=== PATIENT | male | born 1940 | race Caucasian/White ===

== ENCOUNTER → 2016-10-04 | Outpatient (CLI) | payer MEDICARE ==
[~2016-10-04] MED LIST: ATEN50TA41 PO; LOSA25TA5 PO; METF500T4 PO; PIOG15TA4 PO; PRAV40TA2 PO
== END | disposition home or self-care (01) ==
LOC: CFH 11:29
PROVIDERS: ATTEND Internal Medicine Pulmonary Disease
DX: J44.9 Chronic obstructive pulmonary disease, unspecified (principal)
CPT/HCPCS: 71020

== ENCOUNTER 2016-10-08 07:19 | Day surgery (SDC) | payer MEDICARE ==
[2016-10-07 10:29] LABS: ASPARTATE AMINO TRANSFERASE 18 U/L (15-37); BLOOD UREA NITROGEN 14 mg/dL (7-18)
[~2016-10-08] VITALS: Ht 172.7 cm; Wt 124.0 kg
[2016-10-08 07:59] VITALS: BP 126/72
[2016-10-08] MEDS ORDERED: LACTATED RINGERS 1,000 ML IV SCH (08:23)
[2016-10-08] MEDS ORDERED: PROPOFOL 10 MG/ML, 20ML ONE (09:41)
[2016-10-08] MEDS ORDERED: HYDROmorphone 1 MG/ML, 1ML IV PRN (10:00)
[2016-10-08] MEDS ORDERED: ONDANSETRON 2MG/ML, 2ML IVPush PRN (10:00)
[2016-10-08] MEDS ORDERED: hydrALAzine 20 MG/ML, 1ML IV PRN (10:00)
[2016-10-08] MEDS ORDERED: FENTANYL PF 100 MCG/2ML IV PRN (10:00)
[2016-10-08] MEDS ORDERED: MIDAZOLAM 1 MG/ML, 2ML IV PRN (10:00)
[2016-10-08] MEDS ORDERED: OXYcodone 5 MG/5 ML ORAL.SOL UDC PO PRN (10:00)
[2016-10-08] MEDS ORDERED: MEPERIDINE/PF 25MG/0.5ML IVPush PRN (10:00)
[2016-10-08] MEDS ORDERED: ACETAMINOPHEN 325 MG TABLET PO PRN (10:00)
[2016-10-08] MEDS ORDERED: METOCLOPRAMIDE 5 MG/ML, 2ML IV PRN (10:00)
[2016-10-08] MEDS ORDERED: LABETALOL 5MG/ML, 20ML IV PRN (10:00)
[2016-10-08] MEDS ORDERED: PROMETHAZINE 25 MG/ML, 1ML IV PRN (10:00)
[2016-10-08] MEDS ORDERED: ALBUTEROL/IPRATROPIUM 2.5MG/0.5MG, 3 ML NPPB PRN (10:00)
== END 2016-10-08 12:05 | disposition home or self-care (01) ==
LOC: OUT 07:19
PROVIDERS: ATTEND Internal Medicine Geriatric Medicine
DX: K86.2 Cyst of pancreas (principal); I10 Essential (primary) hypertension; I47.2 Ventricular tachycardia; G47.33 Obstructive sleep apnea (adult) (pediatric); J44.9 Chronic obstructive pulmonary disease, unspecified; E10.9 Type 1 diabetes mellitus without complications; E78.5 Hyperlipidemia, unspecified; Z85.46 Personal history of malignant neoplasm of prostate; Z87.891 Personal history of nicotine dependence
CPT/HCPCS: 36415; 43242; 80053; 82962; 93005; J2704; J7120

== ENCOUNTER → 2016-11-07 | Outpatient (CLI) | payer MEDICARE ==
[~2016-11-07] MED LIST changes: +OMNIPAQUE 350 MG/ML, 100ML BOTTLE ONE
== END | disposition home or self-care (01) ==
LOC: CFH 12:38
PROVIDERS: ATTEND Internal Medicine Pulmonary Disease
DX: R93.8 Abnormal findings on diagnostic imaging of other specified body structures (principal); C61 Malignant neoplasm of prostate; M51.34 Other intervertebral disc degeneration, thoracic region; K76.0 Fatty (change of) liver, not elsewhere classified
CPT/HCPCS: 71260; Q9967

== ENCOUNTER → 2018-01-01 | Outpatient (CLI) | payer MEDICARE ==
[~2018-01-01] MED LIST changes: +FLUT1AER PO; -METF500T4 PO; +METF500T5 PO; -OMNIPAQUE 350 MG/ML, 100ML BOTTLE ONE; +TAMS-11 PO
[2018-01-01 10:10] LABS: MICROSCOPIC NOT IND
[2018-01-01 10:21] LABS: ALANINE AMINOTRANSFERASE 31 U/L (12-78); ALBUMIN 3.6 g/dL (3.4-5.0); ANION GAP 6 mmol/L (5-15); CALCIUM 8.4 mg/dL (8.5-10.1); CHLORIDE 105 mmol/L (98-107); CREATININE 0.92 mg/dL (0.7-1.3)
[2018-01-01 10:23] LABS: ALKALINE PHOSPHATASE 91 U/L (45-117); BILIRUBIN,TOTAL 0.9 mg/dL (0.2-1.0); TOTAL PROTEIN 7.6 g/dL (6.4-8.2)
== END | disposition home or self-care (01) ==
LOC: STAR 09:08
PROVIDERS: ATTEND Urology
DX: N21.0 Calculus in bladder (principal)
CPT/HCPCS: 36415; 80053; 81003; 87086; 93005

== ENCOUNTER 2018-01-16 06:57 | Day surgery (SDC) | payer MEDICARE ==
[~2018-01-16] VITALS: Ht 172.7 cm; Wt 113.6 kg
[2018-01-16] MEDS ORDERED: LACTATED RINGERS 1,000 ML IV SCH (07:27)
[2018-01-16] MEDS ORDERED: ACETAMINOPHEN 500 MG TABLET PO ONE (07:30)
[2018-01-16] MEDS ORDERED: GABAPENTIN 300 MG CAPSULE PO ONE (07:30)
[2018-01-16] MEDS ORDERED: DEXAMETHASONE 4 MG/ML, 1ML ONE (08:05)
[2018-01-16] MEDS ORDERED: PROPOFOL 10 MG/ML, 20ML ONE (08:05)
[2018-01-16] MEDS ORDERED: ONDANSETRON 2MG/ML, 2ML ONE (08:05)
[2018-01-16] MEDS ORDERED: FENTANYL PF 100 MCG/2ML ONE (08:05)
[2018-01-16] MEDS ORDERED: CEFAZOLIN 1,000 MG ONE (08:05)
[2018-01-16] MEDS ORDERED: LABETALOL 5MG/ML, 20ML IV PRN (08:30)
[2018-01-16] MEDS ORDERED: OXYcodone 5 MG/5 ML ORAL.SOL UDC PO PRN (08:30)
[2018-01-16] MEDS ORDERED: FENTANYL PF 100 MCG/2ML IV PRN (08:30)
[2018-01-16] MEDS ORDERED: ONDANSETRON 2MG/ML, 2ML IV PRN (08:30)
[2018-01-16] MEDS ORDERED: PROMETHAZINE 25 MG/ML, 1ML IV PRN (08:30)
[2018-01-16] MEDS ORDERED: EPHEDRINE 50 MG/ML, 1ML IM PRN (08:30)
[2018-01-16] MEDS ORDERED: HYDROmorphone 1 MG/ML, 1ML IV PRN (08:30)
[2018-01-16] MEDS ORDERED: ALBUTEROL/IPRATROPIUM 2.5MG/0.5MG, 3 ML NPPB PRN (08:30)
== END 2018-01-16 12:10 ==
LOC: OUT 06:57
PROVIDERS: ATTEND Urology
DX: N21.0 Calculus in bladder (principal); N40.0 Benign prostatic hyperplasia without lower urinary tract symptoms; J44.9 Chronic obstructive pulmonary disease, unspecified; I25.10 Atherosclerotic heart disease of native coronary artery without angina pectoris; E11.9 Type 2 diabetes mellitus without complications; E78.00 Pure hypercholesterolemia, unspecified; Z98.890 Other specified postprocedural states; Z87.891 Personal history of nicotine dependence; Z72.89 Other problems related to lifestyle; Z90.49 Acquired absence of other specified parts of digestive tract; Z85.46 Personal history of malignant neoplasm of prostate; Z93.3 Colostomy status
CPT/HCPCS: 52317; 82360; 82962; 88300; C1769; C2630; J0690; J1100; J2405; J2704; J3010; J7120

== ENCOUNTER 2019-01-20 09:49 | Outpatient (CLI) | payer MEDICARE | END 2019-01-20 23:59 | disposition home or self-care (01) | LOC: CFH 09:49 | PROVIDERS: ATTEND Internal Medicine | DX: J43.2 Centrilobular emphysema (principal); R91.8 Other nonspecific abnormal finding of lung field; E11.22 Type 2 diabetes mellitus with diabetic chronic kidney disease; G47.33 Obstructive sleep apnea (adult) (pediatric) | CPT/HCPCS: 71250 ==

== ENCOUNTER → 2019-06-15 | Outpatient (CLI) | payer MEDICARE ==
[~2019-06-15] MED LIST changes: +LOSA25TA25 PO; -LOSA25TA5 PO; +METF500T17 PO; -METF500T5 PO; +OMNIPAQUE 350 MG/ML, 100ML BOTTLE ONE
[2019-06-15 14:01] LABS: CREATININE 0.98 mg/dL (0.7-1.3)
== END | disposition home or self-care (01) ==
LOC: RAD 13:17
PROVIDERS: ATTEND Radiology Radiation Oncology
CPT/HCPCS: 36415 ×2; 74177 ×2; 82565 ×2; Q9967 ×2

== ENCOUNTER → 2019-06-28 | Outpatient (CLI) | payer MEDICARE ==
[~2019-06-28] MED LIST changes: -OMNIPAQUE 350 MG/ML, 100ML BOTTLE ONE
== END | disposition home or self-care (01) ==
LOC: RAD 10:39
PROVIDERS: ATTEND Radiology Radiation Oncology
DX: C61 Malignant neoplasm of prostate (principal)
CPT/HCPCS: 78306; A9503

== ENCOUNTER 2019-07-08 08:33 | Outpatient (CLI) | payer MEDICARE ==
[2019-07-08] MEDS ORDERED: GADOTERATE 10 MMOL/20 ML SYR ONE (10:40)
== END 2019-07-08 23:59 | disposition home or self-care (01) ==
LOC: CFH 08:33
PROVIDERS: ATTEND Radiology Radiation Oncology
DX: C61 Malignant neoplasm of prostate (principal); M51.37 Other intervertebral disc degeneration, lumbosacral region; M48.07 Spinal stenosis, lumbosacral region
CPT/HCPCS: 72158; A9575

== ENCOUNTER 2019-08-02 06:23 | Day surgery (SDC) | payer MEDICARE ==
[~2019-08-02] VITALS: Ht 172.7 cm; Wt 108.9 kg
[~2019-08-02 06:23] MED LIST changes: -PIOG15TA4 PO; +PIOG15TA69 PO
[2019-08-02] MEDS ORDERED: SODIUM CHLORIDE 0.9% 1,000 ML IV SCH (07:14)
[2019-08-02] MEDS ORDERED: CALCIUM PO (07:20)
[2019-08-02] MEDS ORDERED: VITAMIN D3 PO (07:20)
[2019-08-02] MEDS ORDERED: MULT-658 PO (07:20)
[2019-08-02] MEDS ORDERED: TRILIGY INH (07:25)
[2019-08-02 07:26] VITALS: BP 136/80
[2019-08-02] MEDS ORDERED: FLUMAZENIL 0.1 MG/1 ML, 5ML ONE (08:12)
[2019-08-02] MEDS ORDERED: FENTANYL PF 100 MCG/2ML ONE (08:12)
[2019-08-02] MEDS ORDERED: NALOXONE 1 MG/ML, 2ML ONE (08:12)
[2019-08-02] MEDS ORDERED: MIDAZOLAM 1 MG/ML, 5ML ONE (08:12)
== END 2019-08-02 10:30 | disposition home or self-care (01) ==
LOC: OUT 06:23 → EDSTATUS 08:30 → OUT 10:30
PROVIDERS: ATTEND Radiology Radiation Oncology
DX: C61 Malignant neoplasm of prostate (principal); C77.2 Secondary and unspecified malignant neoplasm of intra-abdominal lymph nodes; G47.30 Sleep apnea, unspecified; E11.9 Type 2 diabetes mellitus without complications; J44.9 Chronic obstructive pulmonary disease, unspecified; Z72.89 Other problems related to lifestyle; Z87.891 Personal history of nicotine dependence; Z79.84 Long term (current) use of oral hypoglycemic drugs
CPT/HCPCS: 49180; 77012; 88305; 88341; 88342; 99156; 99157; J2250; J3010; J7030; J2310